=== PATIENT | female | born 1970 | race Caucasian/White ===

== ENCOUNTER 2022-07-23 09:34 | Emergency (ER) | payer MEDICAID, SELFPAY ==
[2022-07-23 09:41] VITALS: BP 210/109; PULSE 106; RESP 20; TEMP 36.6; O2SAT 94; BMI 32.8
[2022-07-23 09:59] VITALS: BP 175/78; PULSE 94; RESP 17; O2SAT 96
--- NOTE | 2022-07-23 10:20 | W.ED.EXTPRO ---
HPI - Extremity Problem General: Chief complaint: Extremity Injury, Lower Stated complaint: body swelling Time Seen by Provider: 07/23/22 09:48 History of Present Illness: Patient is a 52-year-old female who comes to the ED with multiple complaints. She is complaining of having bilateral lower leg swelling over the past several days. Denies any injury or trauma to cause leg swelling or pain. Denies any chest pain, shortness of breath or hemoptysis. She also endorses having some difficulty with urination and burning pain with urination. Denies any abdominal pain, fevers, nausea/vomiting, bilateral flank pain. Associated symptoms: Deny chest pain, fever(s) or rash Review of Systems Const: Denies: fever(s), chills or fatigue Eyes: Denies: change in vision or eye discomfort ENMT: Denies: throat pain, odynophagia, nasal discharge or nasal congestion Card: Denies: chest pain, palpitations, edema, swelling of feet/ankles, dyspnea on exertion or orthopnea Resp: Denies: dyspnea, productive cough or non-productive cough GI: Denies: abdominal pain, nausea, vomiting, diarrhea, constipation or hematochezia : Reports: difficulty voiding and dysuria; Denies: flank pain or hematuria Musc: Reports: extremity swelling (Right lower extremity); Denies: neck pain or back pain Skin/Breast: Denies: rash or new lesions Neuro: Denies: headache(s), numbness in extremities or weakness in extremities [facility] ED PFSH: Medical History No pertinent family history Surgical History No pertinent past surgical history Social History Smoking and tobacco status: former smoker Physical Exam Const: COMMON NORMALS: patient oriented x3 and alert GENERAL APPEARANCE: cooperative and comfortable HENMT: COMMON NORMALS: normocephalic HEAD & SCALP: normocephalic MOUTH: Normal oral and palatal mucosa present THROAT: posterior oropharynx normal and uvula midline Neck/C-Spine: COMMON NORMALS: supple GENERAL: Yes normal visual inspection Resp: COMMON NORMALS: normal respiratory effort, No retractions, No use of accessory muscles and clear to auscultation bilaterally AUSCULTATION: clear to auscultation bilaterally Cardio: COMMON NORMALS: regular rate, regular rhythm, S1 normal heart sound present, S2 normal heart sound present, No gallops present (Cardio), No clicks present (Cardio), No murmurs present (Cardio) and Peripheral pulses 2+ throughout RATE: regular rate RHYTHM: regular rhythm HEART SOUNDS: S1 normal heart sound present and S2 normal heart sound present PERIPHERAL PULSES: Peripheral pulses 2+ throughout GI: COMMON NORMALS: Normal to inspection, nondistended, normoactive bowel sounds present, Soft to palpation, non-tender and no masses PALPATION: Yes Soft to palpation : COMMON NORMALS: Yes no CVA tenderness BLADDER/KIDNEY EXAM: Yes no CVA tenderness Back/Pelvis: COMMON NORMALS: no CVA tenderness Extremity: COMMON NORMALS: normal to inspection GENERAL: No calf tenderness and Yes edema (Bilateral 2+ pitting edema) Neuro: COMMON NORMALS: patient oriented x3 SENSORIUM/ORIENTATION: Yes alert GAIT: Yes Normal gait present Skin: GENERAL SKIN EXAM: dry skin Course Vital Signs: Vital signs: Vital Signs Temperature 97.9 F 07/23/22 09:41 Pulse Rate 108 H 07/23/22 13:35 Respiratory Rate 17 07/23/22 13:35 Blood Pressure 163/110 07/23/22 13:35 Pulse Oximetry 95 07/23/22 13:35 Oxygen Delivery Me thod 07/23/22 11:15 MDM - Extremity (Nontraumatic) Medical Decision Making Patient is a 52-year-old female who comes to the ED with multiple complaints. She is complaining of having bilateral lower leg swelling over the past several days. Denies any injury or trauma to cause leg swelling or pain. Denies any chest pain, shortness of breath or hemoptysis. She also endorses having some difficulty with urination. Denies any abdominal pain, fevers, nausea/vomiting, bilateral flank pain. Vitals are stable. Upon exam patient appears nontoxic in no acute distress or pain. Patient does have some bilateral 2+ pitting edema but no calf tenderness. Rest of exam is benign. CBC and CMP are unremarkable. UA showed some white blood cells and red blood cells. Patient was stable for discharge home and diagnosed with UTI symptoms and bilateral lower extremity edema. She was discharged home with a prescription for Lasix and cefdinir. Told to follow-up with her PCP within the next week for reevaluation. Return to ED precautions given. Patient understood and agreed with plan Lab Data I reviewed the patient's lab results. 07/23/22 10:22 07/23/22 10:22 Laboratory Results WBC 5.0 10^3/uL (4.0-10.0) 07/23/22 10:22 RBC 3.96 10^6/uL (4.1-5.3) L 07/23/22 10:22 Hgb 11.8 g/dL (11.5-15.3) 07/23/22 10:22 Hct 33.6 % (37.0-47.0) L 07/23/22 10:22 MCV 84.8 fl (81-99) 07/23/22 10:22 MCH 29.8 pg (28.0-34.0) 07/23/22 10:22 MCHC 35.1 g/dL (30.0-36.0) 07/23/22 10:22 RDW 14.0 % (12.1-15.1) 07/23/22 10:22 Plt Count 90 10^3/cmm (130-400) L 07/23/22 10:22 MPV 10.8 fL (7.4-10.4) H 07/23/22 10:22 Neut % (Auto) 69.4 % 07/23/22 10:22 Lymph % (Auto) 19.8 % 07/23/22 10:22 [place] % (Auto) 7.4 % 07/23/22 10:22 Eos % (Auto) 2.4 % 07/23/22 10:22 Baso % (Auto) 0.8 % 07/23/22 10:22 Neut # (Auto) 3.48 10^3/uL (1.8-7.7) 07/23/22 10:22 Lymph # (Auto) 1.0 10^3/uL (0.8-4.8) 07/23/22 10:22 [place] # (Auto) 0.4 10^3/uL (0.2-0.9) 07/23/22 10:22 Eos # (Auto) 0.1 10^3/uL (0.0-0.8) 07/23/22 10:22 Baso # (Auto) 0.0 10^3/uL (0.0-0.1) 07/23/22 10:22 Nucleated RBC % (auto) 0 % 07/23/22 10:22 Nucleated RBCs # 0.0 /100WBC 07/23/22 10:22 Sodium 135 mmol/L (136-145) L 07/23/22 10:22 Potassium 4.0 mmol/L (3.5-5.1) 07/23/22 10:22 Chloride 101 mmol/L (98-107) 07/23/22 10:22 Carbon Dioxide 26 mmol/L (22-29) 07/23/22 10:22 Anion Gap 12.0 (5-19) 07/23/22 10:22 BUN 18 mg/dL (6-20) 07/23/22 10:22 Creatinine 1.0 mg/dL (0.5-0.9) H 07/23/22 10:22 GFR Calculation 58.0 mL/min (90-130) L 07/23/22 10:22 Glucose 329 mg/dL (65-115) H 07/23/22 10:22 Calculated Osmolality 295 mOsm/kg (285-295) 07/23/22 10:22 Calcium 8.6 mg/dL (8.5-10.5) 07/23/22 10:22 Total Bilirubin 2.2 mg/dL (0.15-1.2) H 07/23/22 10:22 AST 63 U/L (0-32) H 07/23/22 10:22 ALT 38 U/L (0-33) H 07/23/22 10:22 Alkaline Phosphatase 112 U/L (35-105) H 07/23/22 10:22 Total Protein 5.5 g/dL (6.6-8.7) L 07/23/22 10:22 Albumin 2.9 g/dL (3.5-5.2) L 07/23/22 10:22 Globulin 2.6 g/dL (1.3-4.6) 07/23/22 10:22 Urine Color Yellow (Yellow) 07/23/22 10:18 Urine Appearance Clear (CLEAR) 07/23/22 10:18 Urine pH 5 (5-7) 07/23/22 10:18 Ur Specific [place] 1.015 (1.005-1.030) 07/23/22 10:18 Urine Protein Trace (Negative) 07/23/22 10:18 Urine Glucose (UA) 2+ (Normal) H 07/23/22 10:18 Urine Ketones Negative (Negative) 07/23/22 10:18 Urine Blood 3+ (Negative) H 07/23/22 10:18 Urine Nitrate Negative (Negative) 07/23/22 10:18 Urine Bilirubin Neg (Negative) 07/23/22 10:18 Urine Urobilinogen 1 mg/dL (Negative) H 07/23/22 10:18 Ur Leukocyte Esterase Negative (Negative) 07/23/22 10:18 Urine RBC 5-10 /hpf (0-2) H 07/23/22 10:18 Urine WBC 0-4 /hpf (0-5) H 07/23/22 10:18 Ur Squamous Epith Cells 5-10 /hpf (0-5) H 07/23/22 10:18 Amorphous Sediment Not Reportable 07/23/22 10:18 Urine Bacteria Trace /hpf (NONE) 07/23/22 10:18 Hyaline Casts 0-4 /lpf H 07/23/22 10:18 Urine Mucus 1+ /hpf 07/23/22 10:18 Discharge Plan Discharge Patient Disposition: Home Clinical Impression: UTI symptoms, Bilateral edema of lower extremity Condition: Stable Prescriptions: New furosemide 40 mg tablet 40 mg PO DAILY Qty: 6 0RF cefdinir 300 mg capsule 300 mg PO BID 10 Days Qty: 20 0RF No Action amoxicillin-pot clavulanate [Augmentin] 875-125 mg tablet 1 tab PO BID 10 Days Qty: 20 0RF Discharge Orders: Discharge ED (Routine); Ordered 07/23/22 Ordered By: Phil Salcedo Discharge Diet: Regular Discharge Activity: Increase activity as tolerated Patient Instructions: Urinary Tract Infection in Women (DC), Edema (ED) Activity Restrictions/Additional Instructions: Follow-up with medical provider as directed. Take medications as prescribed. Return to the ER or your medical provider if condition worsens. Please read and understand discharge instructions. Thank you for choosing [facility] for your healthcare needs today. Please realize this is an emergency room and that we are providing you with a medical screening exam and this may not be complete and all inclusive of all the testing and or work up that you may need to determine your ailment or severity of your illness. It is very important that you follow up as instructed or that you return to the Emergency Department should you have concerns or if your condition changes or worsens in any way. Coding Level of Care Code ED Lance Crewmember for Nathaly Jimenez Exam Comprehensive
[2022-07-23 10:34] LABS: Basophils % 0.8 %; Eosinophils # 0.1 10^3/uL (0.0-0.8); Eosinophils % 2.4 %; Hematocrit 33.6 % (37.0-47.0); Hemoglobin 11.8 g/dL (11.5-15.3); Lymphocytes % 19.8 %; Mean Corpuscular HGB Conc 35.1 g/dL (30.0-36.0); Mean Corpuscular Hemoglobin 29.8 pg (28.0-34.0); Mean Corpuscular Volume 84.8 fl (81-99); Mean Platelet Volume 10.8 fL (7.4-10.4); Monocytes # 0.4 10^3/uL (0.2-0.9); Monocytes % 7.4 %; Neutrophils # 3.48 10^3/uL (1.8-7.7); Neutrophils % 69.4 %; Nucleated Red Blood Cells % 0 %; Platelet Count 90 10^3/cmm (130-400); Red Blood Count 3.96 10^6/uL (4.1-5.3)
[2022-07-23 10:53] LABS: Alanine Aminotransferase 38 U/L (0-33); Albumin Level 2.9 g/dL (3.5-5.2); Alkaline Phosphatase 112 U/L (35-105); Aspartate Amino Transferase 63 U/L (0-32); Blood Urea Nitrogen 18 mg/dL (6-20); Calcium 8.6 mg/dL (8.5-10.5); Carbon Dioxide 26 mmol/L (22-29); Chloride 101 mmol/L (98-107); Globulin 2.6 g/dL (1.3-4.6); Glucose 329 mg/dL (65-115); Osmolality Calculated 295 mOsm/kg (285-295); Sodium 135 mmol/L (136-145); Total Bilirubin 2.2 mg/dL (0.15-1.2); Total Protein 5.5 g/dL (6.6-8.7)
[2022-07-23 11:15] VITALS: BP 163/110; PULSE 108; RESP 17; O2SAT 95
[2022-07-23 11:20] LABS: Add Urine Microscopic? YES; Bilirubin Urine Neg (Negative); Blood Urine 3+ (Negative); Glucose Urine UA 2+ (Normal); Ketones Urine Negative (Negative); Leukocyte Esterase Urine Negative (Negative); Nitrate Urine Negative (Negative); Protein Urine Trace (Negative); Specific Gravity, Urine 1.015 (1.005-1.030); Urine Appearance Clear (CLEAR); Urine Color Yellow (Yellow); Urobilinogen Urine 1 mg/dL (Negative); pH Urine 5 (5-7)
[2022-07-23 11:23] LABS: Bacteria Urine TRACE /hpf; Hyaline Casts Urine 0-4 /lpf; Mucus Urine 1+ /hpf; WBC Urine 0-4 /hpf (0-5)
[2022-07-23 11:24] LABS: Add Urine Culture? No
[2022-07-23 13:35] VITALS: BP 163/110; PULSE 108; RESP 17; O2SAT 95
== END 2022-07-23 13:48 | disposition home or self-care (01) ==
PROVIDERS: Emergency Provider Physician Assistant
DX: R60.0 Localized edema (principal); R39.198 Other difficulties with micturition; Z87.891 Personal history of nicotine dependence
CPT/HCPCS: 36415; 80053; 81001; 85025; 99283

== ENCOUNTER 2024-01-21 23:47 | Emergency (ER) | payer MEDICAID, SELFPAY ==
[2024-01-22] VITALS: BP 190/100; PULSE 93; RESP 17; TEMP 36.8; O2SAT 95; BMI 38.9
--- NOTE | 2024-01-22 00:40 | ED_ITS ---
HPI - Skin/Abscess/Foreign Bdy General: Chief complaint: Skin/Abscess/Foreign Body Stated complaint: Fever Time Seen by Provider: 01/22/24 00:12 History of Present Illness: Patient is a 53-year-old female with a history of Noriega/cirrhosis and presents to the ER stating that she has not been able to take her blood pressure medication today and requesting a refill of her lisinopril and furosemide. She changed also states she has had diarrhea for the last several days. She also is concerned about a possible infection around her umbilicus and states it is painful and has been having some foul odorous drainage. She denies any fevers. PFSH ED PFSH: Medical History No pertinent family history Surgical History No pertinent past surgical history Social History Smoking and tobacco/nicotine status: former use of tobacco/nicotine Physical Exam Narrative: EXAM NARRATIVE: Nontoxic 53-year-old cirrhotic female in no acute distress Const: COMMON NORMALS: no acute distress, average body habitus, alert and well nourished GENERAL APPEARANCE: cooperative ORIENTATION/CONSCIOUSNESS: Yes awake HENMT: COMMON NORMALS: normocephalic and atraumatic HEAD & SCALP: normocephalic and atraumatic Eye: COMMON NORMALS: conjunctivae normal CONJUNCTIVA: Yes conjunctivae normal Neck/C-Spine: GENERAL: Yes normal visual inspection Resp: COMMON NORMALS: normal respiratory effort, No retractions and No use of accessory muscles Cardio: COMMON NORMALS: regular rhythm and Peripheral pulses 2+ throughout RHYTHM: regular rhythm PERIPHERAL PULSES: Peripheral pulses 2+ throughout GI: COMMON NORMALS: Soft to palpation and non-tender PALPATION: Yes Soft to palpation OTHER: Distended abdomen with hepatomegaly, ascites noted. Umbilicus with very minimal erythema noted right at the umbilicus. No current drainage. Extremity: COMMON NORMALS: full ROM OTHER: 2+ bilateral pedal edema. Neuro: COMMON NORMALS: no focal motor deficits SENSORIUM/ORIENTATION: Yes alert Psych: COMMON NORMALS: mental status grossly normal Skin: COMMON NORMALS: no rashes or lesions noted GENERAL SKIN EXAM: no rashes or lesions noted Course Vital Signs: Vital signs: Vital Signs Temperature 98.2 F 01/22/24 00:00 Pulse Rate 89 01/22/24 00:42 Respiratory Rate 18 01/22/24 00:42 Blood Pressure 228/130 01/22/24 00:42 Pulse Oximetry 98 01/22/24 00:42 Oxygen Delivery Me thod Room Air 01/22/24 00:42 MDM - Skin/Abscess/Foreign Bdy Medicial Decision Making Patient is a 53-year-old female with a history of cirrhosis and presents with primary complaint of high blood pressure, concern for infection around her umbilicus, and request a refill of some of her medicines due to her edema. She does have 2+ bilateral pedal edema. Umbilicus is fairly normal in appearance other than minimal erythema right at the umbilicus. No active drainage. Patient was given dose of amlodipine while here. I will go ahead and treat the patient with cephalexin for what may be some very mild early cellulitis. I will refill the patient's lisinopril and furosemide and have her follow-up with her PCP. Differential Diagnosis Likely dermatophytosis, cellulitis, insect bites and contact dermatitis No radiology studies performed this visit Discharge Plan Discharge Patient Disposition: Home Clinical Impression: Cellulitis Qualifiers: Site of cellulitis: unspecified site Qualified Code(s): L03.90 - Cellulitis, unspecified Condition: Stable Prescriptions: New lisinopril 20 mg tablet 20 mg PO DAILY Qty: 30 0RF cephalexin 500 mg capsule 500 mg PO BID 10 Days Qty: 20 0RF furosemide 20 mg tablet 20 mg PO DAILY Qty: 30 0RF No Action amoxicillin-pot clavulanate [Augmentin] 875-125 mg tablet 1 tab PO BID 10 Days Qty: 20 0RF furosemide 40 mg tablet 40 mg PO DAILY Qty: 6 0RF Discharge Orders: Discharge ED (Routine); Ordered 01/22/24 Ordered By: Gee Tamez Patient Instructions: Opioid Safety, Pain Management, Chronic Hypertension (ED) Activity Restrictions/Additional Instructions: Continue home medications as directed. Follow-up with your PCP for recheck next week. Return to the ER for any new or worsening symptoms or any other concerns. Coding Level of Care Code ED Biomedical Equipment Technician for Nathaly Jimenez
[2024-01-22] MEDS: amlodipine 10 mg Tablet PO (00:41)
[2024-01-22 00:42] VITALS: BP 228/130; PULSE 89; RESP 18; O2SAT 98
[2024-01-22 01:15] VITALS: BP 194/106; PULSE 87; RESP 18; O2SAT 96
== END 2024-01-22 01:01 | disposition home or self-care (01) ==
PROVIDERS: Emergency Provider Student in an Organized Health Care Education/Training Program
DX: L03.316 Cellulitis of umbilicus (principal); Z87.891 Personal history of nicotine dependence; I10 Essential (primary) hypertension
CPT/HCPCS: 99283

== ENCOUNTER 2024-03-06 20:11 | Emergency (ER) | payer BC, MEDICAID, SELFPAY ==
[2024-03-06 20:19] VITALS: BP 200/73; PULSE 112; RESP 16; TEMP 36.8; O2SAT 98; BMI 39.9
--- NOTE | 2024-03-06 20:26 | XRR_ITS ---
PROCEDURE INFORMATION: Exam: XR Chest Exam date and time: 03/06/2024 8:37 PM Age: 54 years old Clinical indication: Shortness of breath; Additional info: SOB, right and left flank pain TECHNIQUE: Imaging protocol: Radiologic exam of the chest. Views: 1 view. COMPARISON: No relevant prior studies available. FINDINGS: Lungs: Lingular atelectasis. Emphysematous changes. Pleural spaces: Unremarkable. No pleural effusion. No pneumothorax. Heart/Mediastinum: Cardiomegaly. Bones/joints: Unremarkable. XR/XR chest 1V portable [id number] IMPRESSION: 1. Cardiomegaly. 2. Lingular atelectasis. 3. Emphysematous changes.
--- NOTE | 2024-03-06 20:41 | ECG_ITS ---
[facility] Test Date: 2024-03-06 Pat Name: Rosa Gaspar Department: Room: Gender: Female Director Nicu: : 1970 Requested By: Sanna Murphy Order Number: [id number] Wilder MD: Steve Verma M.D. Measurements Intervals [place] Rate: 87 P: 59 MA: 173 QRS: -3 QRSD: 87 T: 4 QT: 372 QTc: 449 Interpretive Statements SINUS RHYTHM No previous ECG available for comparison Electronically Signed On 03-07-2024 5:03:17 CDT by Steve Verma M.D. [email or web address] [id number]
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
[2024-03-06 21:17] VITALS: BP 188/85; PULSE 96; RESP 20; O2SAT 100
[2024-03-06 21:18] LABS: Bilirubin Urine Neg (Negative); Blood Urine 3+ (Negative); Glucose Urine UA Norm (Normal); Ketones Urine Negative (Negative); Leukocyte Esterase Urine Negative (Negative); Nitrate Urine Negative (Negative); Protein Urine 3+ (Negative); Urine Appearance Slightly Cloudy (CLEAR); Urine Color Yellow (Yellow); Urobilinogen Urine Neg (Negative); pH Urine 5 (5-7)
[2024-03-06 21:19] LABS: Add Urine Culture? Yes; Add Urine Microscopic? YES; Bacteria Urine TRACE /hpf; Mucus Urine 2+ /hpf; WBC Urine 0-4 /hpf (0-5)
[2024-03-06] MEDS: hyDRALAzine 20 mg/mL INJ 1 mL IVP (21:32)
[2024-03-06 21:39] LABS: Basophils % 0.8 %; Eosinophils # 0.1 10^3/uL (0.0-0.8); Eosinophils % 3.7 %; Hematocrit 24.3 % (36-47); Lymphocytes # 0.4 10^3/uL (0.8-4.8); Lymphocytes % 15.6 %; Mean Corpuscular HGB Conc 32.5 g/dL (30-55); Mean Corpuscular Hemoglobin 29.6 pg (27-33); Mean Platelet Volume 10.6 fL (7.4-10.4); Monocytes # 0.2 10^3/uL (0.2-0.9); Monocytes % 8.2 %; Neutrophils # 1.73 10^3/uL (1.8-7.7); Neutrophils % 71.3 %; Nucleated Red Blood Cells % 0 %; Platelet Count 70 10^3/cmm (157-399); Red Blood Count 2.67 10^6/uL (3.85-5.65); Red Cell Distribution Width 14.3 % (12.1-15.1); White Blood Count 2.43 10^3/uL (3.29-11.43)
[2024-03-06 22:00] VITALS: RESP 23; O2SAT 100
[2024-03-06 22:05] LABS: Alanine Aminotransferase 23 U/L (0-33); Albumin Level 2.8 g/dL (3.5-5.2); Alkaline Phosphatase 80 U/L (35-105); Anion Gap 11.2 (5-19); Aspartate Amino Transferase 57 U/L (0-32); Blood Urea Nitrogen 37 mg/dL (6-20); Carbon Dioxide 22 mmol/L (22-29); Chloride 114 mmol/L (98-107); Creatinine Clr Calc Pharmacy 47.0972; Globulin 2.9 g/dL (1.3-4.6); Glomerular Filtration Rate 33.5 mL/min (90-130); Glucose 115 mg/dL (65-115); Magnesium 1.9 mg/dL (1.7-2.3); NT Pro B Type Natriuretic Pept 4628 pg/mL (0-125); Osmolality Calculated 304 mOsm/kg (285-295); Potassium 5.2 mmol/L (3.5-5.1); Sodium 142 mmol/L (136-145); Total Bilirubin 0.9 mg/dL (0.15-1.2); Total Protein 5.7 g/dL (6.6-8.7)
[2024-03-06 22:30] VITALS: RESP 27; O2SAT 100
[2024-03-06] MEDS: FUROsemide 10 mg/mL SDV 4mL 40 MG IVP (22:30)
[2024-03-06 23:30] VITALS: BP 196/93; RESP 17; O2SAT 100
[2024-03-06 23:45] VITALS: BP 171/100; PULSE 99; O2SAT 100
== END 2024-03-06 23:47 | disposition home or self-care (01) ==
PROVIDERS: Emergency Medicine; Emergency Provider Emergency Medicine
DX: R60.0 Localized edema (principal); D61.818 Other pancytopenia; N28.9 Disorder of kidney and ureter, unspecified; I10 Essential (primary) hypertension; Z87.891 Personal history of nicotine dependence
CPT/HCPCS: 36415; 71045; 80053; 81001; 83735; 83880; 85025; 87086; 93005; 96374; 96375; 99285; J0360; J1940

== ENCOUNTER 2024-03-07 07:58 | Emergency (ER) | payer BC, MEDICAID, SELFPAY ==
[2024-03-07] VITALS (7 sets, daily range): BP systolic 168–204; BP diastolic 76–92; PULSE 71–105; RESP 16–20; TEMP 36.7; O2SAT 97–98; BMI 39.9
[2024-03-07] MEDS: cloNIDine 0.1 mg Tablet PO (09:00)
[2024-03-07] MEDS: oxymetazoline 0.05% Nasal Spray 15 mL 2 SPRAY NOSTRIL-B (09:00)
--- NOTE | 2024-03-07 09:47 | ED_ITS ---
HPI - Epistaxis General: Chief complaint: Epistaxis Stated complaint: Continual bloody nose Time Seen by Provider: 03/07/24 08:09 History of Present Illness: 54-year-old female presents emergency ro om with a nosebleed that started early this morning. She has a history of hypertension. She is on any blood thinners. She is hypertensive on presentation. She has been blowing her nose and trying to clear the blood clots. We discussed that the clot is necessary to help stop the bleeding. We also discussed the need to get her blood pressure down. No headaches. No vomiting. Related Data Home Medications Medication Instructions Recorded Confirmed albuterol 90 mcg/actuation aerosol 90 mcg inhalation PRN PRN breathing 01/24/24 03/07/24 inhaler amlodipine 5 mg tablet 5 mg PO DAILY 01/24/24 03/07/24 potassium chloride 20 mEq 20 meq PO DAILY 03/07/24 03/07/24 tablet,extended release Previous Rx's Medication Instructions Recorded lisinopril 20 mg tablet 20 mg PO DAILY #30 tabs 01/22/24 furosemide 20 mg tablet 20 mg PO DAILY #30 tabs 01/24/24 metolazone 5 mg tablet 5 mg PO DAILY #30 tabs 03/06/24 Allergies Allergy/AdvReac Type Severity Reaction Status Date / Time opiates Allergy ALGY-Anaphy Uncoded 01/24/24 13:51 laxis Review of Systems Narrative: Constitutional symptoms: Negative except as documented in HPI. Skin symptoms: Negative except as documented in HPI. Eye symptoms: Negative except as documented in HPI. ENMT symptoms: Negative except as documented in HPI. Respiratory symptoms: Negative except as documented in HPI. Cardiovascular symptoms: Negative except as documented in HPI. Gastrointestinal symptoms: Negative except as documented in HPI. Genitourinary symptoms: Negative except as documented in HPI. Musculoskeletal symptoms: Negative except as documented in HPI. Neurologic symptoms: Negative except as documented in HPI. Psychiatric symptoms: Negative except as documented in HPI. Endocrine symptoms: Negative except as documented in HPI. [facility] ED PFSH: Medical History No pertinent family history Surgical History No pertinent past surgical history Social History Smoking and tobacco/nicotine status: former use of tobacco/nicotine Female Reproductive History: Date of last menstrual period: 01/17/22 Physical Exam Narrative: EXAM NARRATIVE: General: Alert, no acute distress. Skin: warm and dry Head: Normocephalic Neck: Trachea midline Eye: Extraocular movements are intact. Ears, nose, mouth and throat: Oral mucosa moist, patient has blood in the naris bilaterally. Respiratory: Respirations are non-labored Musculoskeletal: Normal ROM Neurological: Alert and oriented, No focal neurological deficit observed. Psychiatric: Cooperative, appropriate mood & affect. Course Vital Signs: Vital signs: Vital Signs Temperature 98.1 F 03/07/24 08:24 Pulse Rate 77 03/07/24 10:22 Respiratory Rate 16 03/07/24 09:46 Blood Pressure 169/88 03/07/24 10:22 Pulse Oximetry 98 03/07/24 10:22 Oxygen Delivery Me thod Room Air 03/07/24 10:22 MDM - Epistaxis Medical Decision Making Reexamination: Bleeding has ceased. No further bleeding. Patient remained stable. No increased work of breathing. No altered mental status. No focal motor deficit s. Blood pressure has improved as well Assessment and plan: Epistaxis Accelerated hypertension ?Oxymetazoline and clonidine. - Discharged home - Discussed plan with patient. Answered any questions. - Evaluation and treatment of this problem were appropriate in the emergency setting. No radiology studies performed this visit Discharge Plan Discharge Patient Disposition: Home Clinical Impression: Epistaxis, Accelerated hypertension Condition: Stable Prescriptions: No Action amlodipine 5 mg tablet 5 mg PO DAILY albuterol 90 mcg/actuation aerosol 90 mcg inhalation PRN PRN (Reason: breathing ) furosemide 20 mg tablet 20 mg PO DAILY Qty: 30 0RF potassium chloride 20 mEq tablet extended release 20 meq PO DAILY lisinopril 20 mg tablet 20 mg PO DAILY Qty: 30 0RF metolazone 5 mg tablet 5 mg PO DAILY Qty: 30 0RF Discharge Orders: Discharge ED (Routine); Ordered 03/07/24 Ordered By: Kaylynn Stern Referrals: Pradeep Buchanan MD [Physician] - (Call for an appointment if you continue to have issues with nosebleeds.) Discharge Diet: Usual diet Discharge Activity: Increase activity as tolerated Patient Instructions: Nosebleed (ED) Activity Restrictions/Additional Instructions: Thank you for choosing [facility] for your healthcare needs today. Please realize this is an emergency room and that we are providing you with a medical screening exam and this may not be complete and all inclusive of all the testing and or work up that you may need to determine your ailment or severity of your illness. You have been screened and evaluated and felt safe for discharge. Health conditions do change or evolve sometimes and as such it is important that you follow up with your Primary Doctor to be re checked, 3-5 days is a general good time frame for follow up. You are always welcome to return to the ED for re assessment if your symptoms are worsening or you have new concerns Coding Level of Care Code ED Implementation Specialist for Nathaly Jimenez
== END 2024-03-07 10:55 | disposition home or self-care (01) ==
PROVIDERS: Emergency Provider Emergency Medicine
DX: R04.0 Epistaxis (principal); I10 Essential (primary) hypertension; Z87.891 Personal history of nicotine dependence
CPT/HCPCS: 99283

== ENCOUNTER 2024-03-30 11:53 | Emergency (ER) | payer BC, MEDICAID, SELFPAY ==
[2024-03-30 12:08] VITALS: BP 174/78; PULSE 98; RESP 17; TEMP 36.8; O2SAT 96; BMI 40.3
[2024-03-30 18:18] LABS: Basophils % 0.4 %; Eosinophils # 0.2 10^3/uL (0.0-0.8); Eosinophils % 3.3 %; Hematocrit 25.6 % (36-47); Lymphocytes # 0.6 10^3/uL (0.8-4.8); Mean Corpuscular HGB Conc 32.8 g/dL (30-55); Mean Corpuscular Hemoglobin 29.4 pg (27-33); Mean Corpuscular Volume 89.5 fl (85-98); Mean Platelet Volume 12.5 fL (7.4-10.4); Monocytes # 0.4 10^3/uL (0.2-0.9); Monocytes % 7.4 %; Neutrophils # 3.72 10^3/uL (1.8-7.7); Neutrophils % 76.7 %; Nucleated Red Blood Cells % 0 %; Platelet Count 69 10^3/cmm (157-399); Red Blood Count 2.86 10^6/uL (3.85-5.65); Red Cell Distribution Width 14.6 % (12.1-15.1); White Blood Count 4.85 10^3/uL (3.29-11.43)
[2024-03-30 18:32] LABS: Alanine Aminotransferase 19 U/L (0-33); Albumin Level 2.9 g/dL (3.5-5.2); Alkaline Phosphatase 67 U/L (35-105); Anion Gap 12.1 (5-19); Aspartate Amino Transferase 37 U/L (0-32); Blood Urea Nitrogen 43 mg/dL (6-20); Calcium 8.2 mg/dL (8.5-10.5); Carbon Dioxide 21 mmol/L (22-29); Chloride 107 mmol/L (98-107); Creatinine Clr Calc Pharmacy 44.5409; Globulin 3.4 g/dL (1.3-4.6); Glomerular Filtration Rate 31.2 mL/min (90-130); Glucose 93 mg/dL (65-115); Osmolality Calculated 293 mOsm/kg (285-295); Potassium 4.1 mmol/L (3.5-5.1); Sodium 136 mmol/L (136-145); Total Bilirubin 1.2 mg/dL (0.15-1.2); Total Protein 6.3 g/dL (6.6-8.7)
== END 2024-03-30 22:05 | disposition left against medical advice (07) ==
PROVIDERS: Emergency Provider Family Medicine
DX: Z53.21 Procedure and treatment not carried out due to patient leaving prior to being seen by health care provider (principal)
CPT/HCPCS: 36415; 80053; 85025; 87040